=== PATIENT | female | born 1965 | race Native Hawaiian/Other Pacific Islander ===

== ENCOUNTER 2017-06-14 19:36 | Emergency (ER) | payer OTHER ==
[2017-06-14 19:47] VITALS: BP 103/67; PULSE 67; RESP 16; TEMP 98; O2SAT 98
--- NOTE | 2017-06-14 20:10 | ED PDOC ---
Upper Extremity Pain/Injury Time Seen by Provider: 06/14/17 19:49 Chief Complaint (Nursing): Upper Extremity Problem/Injury Chief Complaint (Provider): Upper Extremity Problem/Injury History Per: Patient History/Exam Limitations: no limitations Onset/Duration Of Symptoms: Hrs (1) Current Symptoms Are (Timing): Still Present Additional Complaint(s): 51 year old female brought in by EMS to the ED complaining of a left shoulder injury, onset prior to arrival. Reports she slipped on a crack and fell without time to brace herself. Cannot lift her arm. Also scraped her right knee, but her main complaint is her arm. She denies head injury, numbness or paresthesia. PMD: Dr. Chacho BELTRE Past Medical History Reviewed: Historical Data, Nursing Documentation, Vital Signs Vital Signs: Last Vital Signs Temp 98.0 F 06/14/17 19:45 Pulse 67 06/14/17 19:45 Resp 16 06/14/17 19:45 BP 103/67 06/14/17 19:45 Pulse Ox 98 06/14/17 19:45 - Medical History PMH: No Chronic Diseases - Surgical History Other surgeries: Left ACL repair - Family History Family History: States: Unknown Family Hx - Social History Current smoker - smoking cessation education provided: No Alcohol: Social Drugs: Denies - Home Medications Home Medications: Ambulatory Orders Medication Instructions Recorded Ibuprofen [Motrin Tab] 600 mg PO Q6 #30 tab 06/14/17 - Allergies Allergies/Adverse Reactions: Allergies Allergy/AdvReac Type Severity Reaction Status Date / Time No Known Allergies Allergy Verified 06/14/17 19:45 Review of Systems ROS Statement: Except As Marked, All Systems Reviewed And Found Negative Musculoskeletal: Positive for: Shoulder Pain (left ) Neurological: Negative for: Weakness, Numbness Physical Exam - Reviewed Nursing Documentation Reviewed: Yes Vital Signs Reviewed: Yes - Physical Exam Appears: Positive for: Non-toxic, No Acute Distress Head Exam: Positive for: NORMOCEPHALIC Skin: Positive for: Normal Color, Warm, Dry Eye Exam: Positive for: Normal appearance, PERRL Cardiovascular/Chest: Positive for: Regular Rate, Rhythm, Chest Non Tender. Negative for: Murmur Respiratory: Positive for: Normal Breath Sounds. Negative for: Respiratory Distress Pulses-Dorsalis Pedis (L): 2+ Pulses-Dorsalis Pedis (R): 2+ Extremity: Positive for: Tenderness (of L deltoid), Swelling (of left deltoid; unable to lift arm at shoulder). Negative for: Other (no stepoff or swelling of left bicep, elbow and forearm) Neurologic/Psych: Positive for: Alert, Oriented. Negative for: Motor/Sensory Deficits - ECG O2 Sat by Pulse Oximetry: 98 (RA) Pulse Ox Interpretation: Normal Medical Decision Making Medical Decision Making: Time: 19:53 Impression: humeral head fracture Initial Plan: --Left shoulder x-ray --600 mg Ibuprofen 830PM Pt. informed of results, encouraged to wear sling, NSAIDs as needed. Referral to ortho given, patient states she has her own ortho at [facility] in [place], will provide CD of images. Pt. offered narcotics for pain, patient declined and states that NSAIDs are adequate. Scribe Attestation: Documented by Aye Zimmerman, acting as a scribe for Abbe Sandra MD Provider Scribe Attestation: All medical record entries made by the Scribe were at my direction and personally dictated by me. I have reviewed the chart and agree that the record accurately reflects my personal performance of the history, physical exam, medical decision making, and the department course for this patient. I have also personally directed, reviewed, and agree with the discharge instructions and disposition. Disposition - Clinical Impression Clinical Impression: Humeral head fracture - Disposition Referrals: Sunny Dhillon III, MD [Staff Provider] - Disposition: Routine/Home Disposition Time: 20:30 Condition: STABLE Prescriptions: Ibuprofen [Motrin Tab] 600 mg PO Q6 #30 tab Instructions: Arm Fracture in Adults (ED) Forms: [employer] (Serbian)
--- NOTE | 2017-06-15 09:01 | RAD ---
PROCEDURE: Radiographs of the Left Shoulder HISTORY: s/p fall COMPARISON: No prior. FINDINGS: BONES: Comminuted fracture of the proximal humerus is appreciated involving the head and the proximal metaphysis with the greater tuberosity avulsed without prominent displacement. Better characterization can be provided by CT if clinically warranted. No dislocation. JOINTS: Glenohumeral and acromioclavicular joints appear intact. SOFT TISSUES: Normal. OTHER FINDINGS: None. IMPRESSION: Apparent comminuted fracture proximal left humerus including avulsion fracture greater tuberosity. No dislocation or subluxation.
== END 2017-06-14 20:45 | disposition home or self-care (01) ==
LOC: H.ER 19:36
DX: S42.292A Other displaced fracture of upper end of left humerus, initial encounter for closed fracture (principal); W01.0XXA Fall on same level from slipping, tripping and stumbling without subsequent striking against object, initial encounter